=== PATIENT | female | born 2000 | race Caucasian/White ===

== ENCOUNTER 2024-06-27 08:58 | Outpatient (CLI) | payer OTHER, SELFPAY ==
[2024-06-27 16:48] LABS: Progesterone 14.5 ng/mL
== END 2024-06-27 08:59 | disposition home or self-care (01) ==
LOC: ANHLAB 09:05
PROVIDERS: Visit Provider Advanced Practice Midwife
DX: R87.69 Abnormal cytological findings in specimens from other female genital organs (principal)
CPT/HCPCS: 36415; 84144

== ENCOUNTER 2025-03-31 18:40 | Inpatient (IN) | payer OTHER, SELFPAY ==
[2025-03-31] VITALS (56 sets, daily range): BP systolic 108–143; BP diastolic 55–99; PULSE 51–91; TEMP 36.6; O2SAT 98–100; BMI 31.1
[2025-03-31 18:02] LABS: Add Urine Microscopic? YES; Appearance Urine Clear (Clear); Bacteria Urine 1+ /hpf; Bilirubin Urine Negative (Negative); Blood Urine Negative (Negative); Color Urine Yellow (Yellow); Glucose Urine UA Negative (Negative); Ketones Urine Negative (Negative); Leukocyte Esterase Ur 3+ LEU/UL (Negative); Nitrate Urine Negative (Negative); Non Pathogenic Casts 0-2; Protein Urine Negative (Negative); RBC Urine 0-2 /hpf (0-2); Specific Grav Ur 1.006 (1.001-1.035); Squamous Epithelial Cell Urine Occasional /hpf (Few); Urobilinogen Urine 0.2 mg/dL (<2.0); pH Urine 6.5 (5.0-9.0)
[2025-03-31 18:06] LABS: Basophils Percent Auto 0.3 % (0.2-1.2); Eosinophils Absolute Auto 0.1 K/mm3 (0-0.3); Eosinophils Percent Auto 0.3 % (0-4.4); Hematocrit 36.5 % (37.0-47.0); Hemoglobin 12.8 g/dL (12.0-15.0); Immature Granulocyte Absolute 0.11 K/mm3 (0.00-0.031); Immature Granulocyte Percent A 0.7 % (0-0.5); Lymphocytes Absolute Auto 2.34 K/mm3 (0.9-3.2); Lymphocytes Percent Auto 14.9 % (18.3-44.2); Mean Corpuscular HGB Conc 35.1 g/dl (32-36); Mean Corpuscular Hemoglobin 33.4 pg (26-34); Mean Corpuscular Volume 95.3 fl (80-100); Monocytes Absolute Auto 0.9 K/mm3 (0.1-0.6); Monocytes Percent Auto 5.8 % (2.6-8.5); Neutrophils Absolute Auto 12.3 K/mm3 (1.3-6.7); Platelet Count Result 182 k/mm3 (150-375); Red Blood Count 3.83 M/mm3 (4.2-5.4); White Blood Count 15.7 K/mm3 (4.5-10.0)
--- OUTSIDE RECORDS SUMMARY | 2025-03-31 18:16 | XMS_ITS | Continuity of Care Document ---
Author Organization [facility] Address [address] [place] [address] Assessment Encounter Date Assessment Date Assessment LastModified by Organization Details LastModified Time 03/31/2025 03/31/2025 Patient is 38___weeks . Discussed plan. Not available 03/31/2025 18:52:42 Plan of Treatment Reminders Order Date Submit Date Provider Last Modified By Organization Details Last Modified Time Details Appointments OB ROUTINE 2024 03:45P Zain Longo CNM Not available Not available Not available Lab None recorded . Referral None recorded . Procedures None recorded . Surgeries None recorded . Imaging None recorded . Medication Orders None recorded . Patient TargetsNo targets recorded. Patient InstructionsNo instructions recorded. Reason for Referral None Reported. Results Created Date Observation Date Name Description Value Unit Range Abnormal Flag Note LastModifiedBy Organization Detail LastModifiedTime 09/30/20 24 09/30/2024 US, obste tric, nucha l trans lucen cy No observ ation record ed. [email or web address] [address], [place], [address], 09/30/2024 16:57:25 09/30/20 24 09/30/2024 US, obste tric, nucha l trans lucen cy No observ ation record ed. [facility] [address], [place], [address], 09/30/2024 13:10:38 09/30/20 24 09/30/2024 US, obste tric, 1st trime ster No observ ation record ed. [facility] [address], [place], [address], 09/30/2024 13:10:50 09/30/20 24 09/30/2024 US, obste tric, 1st trime ster No observ ation record ed. [facility] [address], [place], [address], 09/30/2024 13:10:59 09/30/20 24 09/30/2024 US, obste tric, 1st trime ster No observ ation record ed. [facility] [address], [place], [address], 09/30/2024 13:11:10 11/25/19 25 11/25/2024 US, obste tric, 2nd or 3rd trime ster No observ ation record ed. [email or web address] [place] [address], [place], [address], 11/25/2024 13:25:26 11/25/19 25 11/25/2024 US, obste tric, trans vagin al No observ ation record ed. [email or web address] [place] [address], [place], [address], 11/25/2024 13:25:46 11/25/19 25 11/25/2024 US, obste tric, 2nd or 3rd trime ster No observ ation record ed. [email or web address] [address], [place], [address], 11/25/2024 21:31:18 02/26/20 25 02/25/2025 US, obste tric, follo w-up No observ ation record ed. [email or web address] [place] [address], [place], [address], 02/25/2025 11:21:03 02/26/20 25 02/25/2025 US, obste tric, follo w-up No observ ation record ed. SELENE [address], [place], [address], 03/02/2025 09:18:08 Result Notes None recorded. Problems Name Problem SNOMED Code Status Onset Date Resolution Date Notes Provider Name and Address Organization Details Recorded Time [id number] Active 024 Sherrill Moscoso [facility] 4 09:48:49 Problem Notes None recorded. Procedures Surgical History Date Name Laterality Status Provider Name and Address Organization Details Recorded Time Date of Last Pap Smear completed Sherrillmellisa Moscoso [facility] 06/03/2024 14:14:57 4 extraction of wisdom tooth completed Sherrillmellisa Moscoso [facility] 06/03/2024 14:21:46 Imaging Results None recorded. Procedure Notes None recorded. Medical Equipment None Reported. Allergies No known drug allergies Medications Name Sig Start Date Stop Date Status Note LastModified by Organization Details LastModified Time ondansetron 4 mg disintegrat ing tablet Place 1 tablet every 6 hours by transling ual route. 02/10 completed Not Available Not Available Not Available nitrofurant oin monohydrate /macrocryst als 100 mg capsule TAKE 1 CAPSULE BY MOUTH EVERY 12 HOURS FOR 7 DAYS DIRECTED 11/25 completed Not Available Not Available Not Available Se-Marcos 19 Chewable 09/02 completed Not Available Not Available Not Available Jublia 10 % topical solution with applicator APPLY TOPICALLY TO THE AFFECTED AREA DAILY 09/02 completed Not Available Not Available Not Available Se- 19 29 mg iron-1 mg tablet TAKE 1 TABLET BY MOUTH EVERY DAY active Not Available Not Available No t Available Vitals Date Recorded Body weight Body mass index (BMI) Body height Systolic blood pressure Diastolic blood pressure Provider Name and Address Organization Details Last Updated DateTime 03/31/2025 88914.28 926 g 31.2 kg/m2 169.55 cm 169 mm[Hg] 89 mm[Hg] Sherrill Moscoso [facility] 16:48:22 Social History Question Answer Notes LastModified by Organizat ion Details LastModified Time Tobacco Smoking Status Never Smoker Sherrill hale [facility] 06/03/2024 14:20:12 If You Are , What Was Your Level Of Alcohol Consumption Prior To ? Occasional [email or web address] Information not available 09/02/2024 How Many Years Have You Consumed Alcohol? 4 [email or web address] Information not available 06/03/2024 Are You Blind Or Do You Have Difficulty Seeing? No [email or web address] Information n ot available 06/03/2024 What Is Your Level Of Caffeine Consumption? Occasional [email or web address] Information not available 06/03/2024 How Much Tobacco Do You Chew? None [email or web address] Information not available 06/03/2024 In The 14 Days Before Symptom Onset, Have You Had Close Contact With A Laboratory-confirm ed COVID-19 While That Case Was Ill? No [email or web address] Information n ot available 06/03/2024 In The 14 Days Before Symptom Onset, Have You Had Close Contact With A Person Who Is Under Investigation For COVID-19 While That Person Was Ill? No [email or web address] Information not available 06/03/2024 Have You Been To An Area Known To Be High Risk For COVID-19? No [email or web address] Information not available 06/03/2024 Are You Deaf Or Do You Have Serious Difficulty Hearing? No [email or web address] Information not available 06/03/2024 What Type Of Diet Are You Following? REGULAR [email or web address] Information n ot available 06/03/2024 What Is The Highest Grade Or Level Of School You Have Completed Or The Highest Degree You Have Received? QM23518-8 [email or web address] Information not available 06/03/2024 Are There Any Guns Present In Your Home? No [email or web address] Information not available 06/03/2024 Have You Ever Been Counseled For Unhealthy Alcohol Use? No [email or web address] Information not available 06/03/2024 Do You Use Protection During Sex? No [email or web address] Information not available 06/03/2024 Do You Use Your Seat Belt Or Car Seat Routinely? Yes [email or web address] Information not available 06/03/2024 Do You Have Smoke And Carbon Monoxide Detectors In Your Home? Yes [email or web address] Information not available 06/03/2024 How Much Tobacco Do You Smoke? No [email or web address] Information not available 06/03/2024 Do You Use Sunscreen Routinely? Yes [email or web address] Information not available 06/03/2024 Has Tobacco Cessation Counseling Been Provided? No Information not available 06/03/2024 Have You Used IV Drugs? No [email or web address] Information not available 06/03/2024 Do You Have Difficulty Walking Or Climbing Stairs? No [email or web address] Information not available 06/03/2024 Sex: Unknown Functional Status Question Answer Note LastModified by Organizat ion Details LastModified Time Do you use any illicit or recreational drugs? No [email or web address] Information not available 06/03/2024 Do you or have you ever used any other forms of tobacco or nicotine? No [email or web address] Information not available 06/03/2024 What is your level of alcohol consumption? None [email or web address] Information not available 09/02/2024 Are you able to walk? YESWOREST [email or web address] Information not available 06/03/2024 Are you able to care for yourself? 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 No [email or web address] Information not available 06/03/2024 What is your exercise level? Occasional [email or web address] Information not available 06/03/2024 Mental Status Question Answer Note LastModified by Organization D etails LastModified Time Do you feel stressed (tense, restless, nervous, or anxious, or unable to sleep at night)? [id number] Information not available 06/03/2024 Family History Relationship Description Onset Age of this Age Resolved Age Notes LastModified by Organization Details LastModified Time Father Heart disease [email or web address] Not available 06/03 14:21:57 Father Hypertensive disorder [email or web address] Not available 06/03 14:22:06 Medical History Condition Response Allergies (Food, seasonal, environmental ) N Other N Drug/Latex Allergies/Reactions N Breast Cancer N Blood Transfusion N Lung Disease N Dermatologic Disorders N Defects or Inherited Disease N Breast Problem N Gestational Diabetes N Hematologic disorders N Anesthesia Complications N History of STI N Deep Vein Thrombosis N Polycystic ovary syndrome N Anxiety Disorder N Autoimmune disease N Arthritis N Polyps N Infertility N History of abnormal pap N Acid Reflux (GERD) N Cancer N Varicosities N Stroke N Neurologic/Epilepsy N Endometriosis N High Cholesterol N Headaches N Fibromyalgia N Kidney Disease N Heart Problems N Thyroid Problems N Kidney or Bladder Problems N GI Problems N Eating Disorder N Anemia N Art (IVF or FET) N Psychiatric Illness N Ovarian Cancer N Diabetes N Pulmonary (TB, Asthma) N Hepatitis/Liver Disease N No Past Medical History N Eczema N Urinary Tract Infection N Abuse/Domestic Violence N Asthma N Trauma/Violence N Depression/ depression N Heart Disease N Pre-Eclampsia N Hypertension N Osteoporosis N Thrombophilias N Gynecological History Statement/Question Response Date of Last Mammogram Date of LMP 07/05/2024 N STIs/STDs N Was last menstrual period normal Y Duration of Flow (days) 4 Current Control Method Sexually Active? Y Date of DEXA bone scan Age of first menstrual cycle 11 Date of Last Pap Smear 01/30/2024 Sexual Problems? N LMP Definite N Obstetrics History GPAL:G 1 P 0 0 0 0 Type Value Living 0 Total 1 Past Encounters Encounter ID Performer Location Encounter Start Date Encounter Closed Date Diagnosis/Indication Diagnosis SNOMED-CT Code Diagnosis ICD10 Code Diagnosis [facility] [id number] [facility] [address] [place] [address] 03/12/2025 11:42:38 03/12/2025 12:35:50 Gestation period, 35 weeks [id number] Z3A.35 [id number] [facility] [address] [place] [address] 03/17/2025 15:19:37 03/18/2025 08:47:32 Gestation period, 36 weeks [id number] Z3A.36 [id number] [facility] [address] [place] [address] 03/26/2025 15:53:36 03/26/2025 16:20:24 Gestation period, 37 weeks 79271089 Z3A.37 - induced hypertension 63035852 O13.9 [id number] [facility]isc[facility] [address] [address] 03/31/2025 16:37:39 03/31/2025 19:03:38 Health Concerns Section Related Observation LastModified by Organization Detai ls LastModified Time None Recorded Concern Status LastModified by Organization Details LastModified Time None Recorded Payers Encounter Date Sequence Insurance Name Policy Number Policy Chavez Covered Member ID Chavez Member ID Guarantor Name 03/31/[address] [facility] [id number] Jaycee Faria [id number] Jaycee Faria OBGyn Episode Ob Episode Information Episode Created Date Number of Fetuses Patient Bloodtype Patient rh Status Prepregnancy Weight lbs Domestic Partner Domestic Partner Phone Father Name Pharmaceutical Officer Status 09/30/20 24 1 A Positive [address] OPEN Fetus Data First Name Last Name Admitted to NICU Weight (g) Sex Living Outcome Pediatric Complications Fetus ID Race Codes Race Delivery Type [id number] Alejo Calculation Initial Alejo Date Initial Exam Date Initial Exam Provider Initial Ultrasound Date Last Menstrual Period Date Ultra Sound Weeks Gestation 04/11/2025 09/02/2024 09/02/2024 07/05/2024 8 Eighteen To Twenty Week Alejo Update Ultra Sound Date Fundal Height At Umbil Quickening Date Ultra Sound Latest Weeks Gestation Final Aleoj Confirmed By Final Alejo Confirmed Date Final Alejo Date Ultra Sound Latest Days Gestation 0 0 Pre- Flowsheet Flowsheet Date 09/30/2024 Hines Score Blood Edema Fundus Height Fundus Units Glucose Ketones Leukocytes Nitrite Labor Signs Protein Cervic Dilation Cervic Effacement Cervic Station neg none none trace Type Weight in lbs Pre/Post Dialysis Refused Weight 157.613773966712 BP Diastolic BP Location Tested BP Systolic BP Type 80 115 Fetus Heart Rate Present Fetus Movement A No Comments Patient states that is havin g some nausea and vomiting. US after visit, reviewed education and precautions, zofran rx to pharmacy, begin routine care Flowsheet Date 09/30/2024 Hines Score Blood Edema Fundus Height Fundus Units Glucose Ketones Leukocytes Nitrite Labor Signs Protein Cervic Dilation Cervic Effacement Cervic Station Type Weight in lbs Pre/Post Dialysis Refused BP Diastolic BP Location Tested BP Systolic BP Type Fetus Heart Rate Present Fetus Movement Comments Flowsheet Date 09/30/2024 Hines Score Blood Edema Fundus Height Fundus Units Glucose Ketones Leukocytes Nitrite Labor Signs Protein Cervic Dilation Cervic Effacement Cervic Station Type Weight in lbs Pre/Post Dialysis Refused BP Diastolic BP Location Tested BP Systolic BP Type Fetus Heart Rate Present Fetus Movement Comments Flowsheet Date 10/28/2024 Hines Score Blood Edema Fundus Height Fundus Units Glucose Ketones Leukocytes Nitrite Labor Signs Protein Cervic Dilation Cervic Effacement Cervic Station none Type Weight in lbs Pre/Post Dialysis Refused 160.968132138532 BP Diastolic BP Location Tested BP Systolic BP Type 78 118 Fetus Heart Rate Present Fetus Movement A No Comments Patient states that is havin g some pain and discharge. reviewed precautions education, no FM yet, US scheduled. does not plan on . discussed classes Flowsheet Date 11/25/2024 Hines Score Blood Edema Fundus Height Fundus Units Glucose Ketones Leukocytes Nitrite Labor Signs Protein Cervic Dilation Cervic Effacement Cervic Station Type Weight in lbs Pre/Post Dialysis Refused BP Diastolic BP Location Tested BP Systolic BP Type Fetus Heart Rate Present Fetus Movement Comments Flowsheet Date 11/25/2024 Hines Score Blood Edema Fundus Height Fundus Units Glucose Ketones Leukocytes Nitrite Labor Signs Protein Cervic Dilation Cervic Effacement Cervic Station neg none none trace Type Weight in lbs Pre/Post Dialysis Refused 164.10311724587 BP Diastolic BP Location Tested BP Systolic BP Type 80 130 Fetus Heart Rate Present Fetus Movement A Yes Comments Patient is having back pain urine frequncy and discharge. 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 f/u 4 weeks Flowsheet Date 12/25/2024 Hines Score Blood Edema Fundus Height Fundus Units Glucose Ketones Leukocytes Nitrite Labor Signs Protein Cervic Dilation Cervic Effacement Cervic Station 24 cm Type Weight in lbs Pre/Post Dialysis Refused Weight 174.677002259883 BP Diastolic BP Location Tested BP Systolic BP Type 78 L arm 118 sitting Fetus Heart Rate Present A 148 Present Fetus Movement A Yes Comments no complaints, no problems, routine care, no contractions, no vaginal bleeding, no loss of fluid, no cramping Flowsheet Date 01/20/2025 Hines Score Blood Edema Fundus Height Fundus Units Glucose Ketones Leukocytes Nitrite Labor Signs Protein Cervic Dilation Cervic Effacement Cervic Station neg none 28 cm Type Weight in lbs Pre/Post Dialysis Refused Weight 181.962771452811 BP Diastolic BP Location Tested BP Systolic BP Type 83 131 Fetus Heart Rate Present A 147 Present Fetus Movement A Yes Comments Patient is having back and l eg pain. will measure for maternity support belt. will try flexeril, +FM rx for tdap, precautions and education, gct today Flowsheet Date 02/10/2025 Hines Score Blood Edema Fundus Height Fundus Units Glucose Ketones Leukocytes Nitrite Labor Signs Protein Cervic Dilation Cervic Effacement Cervic Station neg none Type Weight in lbs Pre/Post Dialysis Refused Weight 187.027997474983 BP Diastolic BP Location Tested BP Systolic BP Type 84 129 Fetus Heart Rate Present Fetus Movement A Yes Comments +FM , planning tdap, order b reast pump, precautions and education f/u 2 weeks, call for preadmit Flowsheet Date 02/25/2025 Hines Score Blood Edema Fundus Height Fundus Units Glucose Ketones Leukocytes Nitrite Labor Signs Protein Cervic Dilation Cervic Effacement Cervic Station neg none Type Weight in lbs Pre/Post Dialysis Refused Weight 188.748034400941 BP Diastolic BP Location Tested BP Systolic BP Type 87 140 72 122 Fetus Heart Rate Present Fetus Movement A Yes Comments Patient is having nausea. re viewed precautions, education, +FM US today for growth f/u 2 weeks, call for preadmit Flowsheet Date 02/25/2025 Hines Score Blood Edema Fundus Height Fundus Units Glucose Ketones Leukocytes Nitrite Labor Signs Protein Cervic Dilation Cervic Effacement Cervic Station Type Weight in lbs Pre/Post Dialysis Refused BP Diastolic BP Location Tested BP Systolic BP Type Fetus Heart Rate Present Fetus Movement Comments Flowsheet Date 03/12/2025 Hines Score Blood Edema Fundus Height Fundus Units Glucose Ketones Leukocytes Nitrite Labor Signs Protein Cervic Dilation Cervic Effacement Cervic Station neg trace 34 cm Type Weight in lbs Pre/Post Dialysis Refused Weight 192.283738728494 BP Diastolic BP Location Tested BP Systolic BP Type 80 125 Fetus Heart Rate Present A 150 Fetus Movement A Yes Comments Patient is having some swell ing. reviewed precautions education gbs collected +FM Flowsheet Date 03/17/2025 Hines Score Blood Edema Fundus Height Fundus Units Glucose Ketones Leukocytes Nitrite Labor Signs Protein Cervic Dilation Cervic Effacement Cervic Station neg none 36 cm Type Weight in lbs Pre/Post Dialysis Refused Weight 195.014327412835 BP Diastolic BP Location Tested BP Systolic BP Type 88 129 Fetus Heart Rate Present A 147 Present Fetus Movement A Yes Comments Patient states that is havin g some swelling. reviewed precautions, scheduled 39 week IOl, +FM precautions and education Flowsheet Date 03/26/2025 Hines Score Blood Edema Fundus Height Fundus Units Glucose Ketones Leukocytes Nitrite Labor Signs Protein Cervic Dilation Cervic Effacement Cervic Station neg trace Type Weight in lbs Pre/Post Dialysis Refused Weight 197.711899456910 BP Diastolic BP Location Tested BP Systolic BP Type 90 136 82 128 Fetus Heart Rate Present Fetus Movement Comments Patient is having cramping a nd swelling. denies martin visual changes epigastric pain, plan labs has f/u on saturday +FM, preadmit done, precautions and education Flowsheet Date 03/31/2025 Hines Score Blood Edema Fundus Height Fundus Units Glucose Ketones Leukocytes Nitrite Labor Signs Protein Cervic Dilation Cervic Effacement Cervic Station neg trace Type Weight in lbs Pre/Post Dialysis Refused 198.801132669976 BP Diastolic BP Location Tested BP Systolic BP Type 89 169 Fetus Heart Rate Present Fetus Movement A Yes Comments Patient is having back pain, cramping, swelling and nausea. Patient was sent to labor and delivery for her blood pressure. Menstrual History Last Menstrual Date Menses Monthly On Bcp Conception Prior Menses Frequency Hcg Plus Date Menarche Onset Age 0907/05/2024 true Delivery Information Delivery Date Delivery Type Labor Anesthesia Weeks Gestation Incision Type Labor Labor Length Hrs Delivered By Post Complications Tubal Sterilization Discharge Date Comments Discharge Information Feeding Method Contraceptive Method Maternal HG B and HCT Levels
--- OUTSIDE RECORDS SUMMARY | 2025-03-31 18:16 | XMS_ITS | Data Portability ---
Author Organization [facility] Address [address] [place] [address] Assessment Encounter Date Assessment Date Assessment LastModified by Organization Details LastModified Time 02/25/2025 02/25/2025 Patient is _33__weeks . Discussed plan. Not available 02/25/2025 09:28:13 03/12/2025 03/12/2025 Patient is _35__weeks . Discussed plan. [email or web address] Not available 03/12/2025 12:25:10 03/17/2025 03/17/2025 Patient is __36_weeks . Discussed plan. Not available 03/17/2025 19:44:57 03/26/2025 03/26/2025 Patient is ___weeks . Discussed plan. [email or web address] Not available 03/26/2025 16:05:03 03/31/2025 03/31/2025 Patient is 38___weeks . Discussed plan. [email or web address] Not available 03/31/2025 18:52:42 Plan of Treatment Reminders Order Date Submit Date Provider Last Modified By Organization Details Last Modified Time Details Appointments OB ROUTINE 2024 03:45P M Francisca Longo CNM Not available Not available Not available Lab CBC w/ auto diff 2024 025 [facility] (Lab), [address], [place], [address], 03/27/2025 04:49:37 CMP, serum or plasma 2024 025 [facility] (Lab), [address], [place], [address], 03/27/2025 04:49:38 uric acid, serum or plasma 2024 025 [facility] (Lab), [address], [place], [address], 03/27/2025 04:49:38 protein: creatini ne ratio, urine 2024 025 [facility] (Lab), [address], [place], [address], 03/27/2025 04:49:39 Referral None recorded . Procedures None recorded . Surgeries None recorded . Imaging None recorded . Medication Orders None recorded . Patient TargetsNo targets recorded. Patient InstructionsNo instructions recorded. Reason for Referral None Reported. Results Created Date Observation Date Name Description Value Unit Range Abnormal Flag Note LastModifiedBy Organization Detail LastModifiedTime 03/12/2003/12/2025 CULTU RE: GROUP B STREP SCREE N, REFLE X SUSCE PTIBI LITY result report SEE RESULT S BELOW Test: Cultu re: Group B Strep , Refle x Susce ptibi lity ([facility] ) Speci men Sourc e: Vagin a/Rec roz Speci men Type: Vagin al/Re ctal Speci men Date: 2024 1144 Resul t Date: 2024 1408 Resul t Statu s: Final resul t Abnor mal: No Resul ting Lab: [facility] [address] [facility] [address] Tel: CULTU RE ----- ----- ----- --- No Group B strep isola haja at 2 days (viola ctive broth enhan cemen t) Not Available [facility] (Lab) [address], [place], [address], 03/15/2025 15:10:46 03/26/20 25 03/26/2025 CBC W/DIF F WBC 12.1 10'3/ uL 3.5-10 .5 high Not Available [facility] (Lab) [address], [place], [address], 03/27/2025 04:49:37 03/26/20 25 03/26/2025 CBC W/DIF F RBC 4.08 10'6/ uL (based on docume nted legal sex) 3.80-5 .20 Not Available [facility] (Lab) [address], [place], [address], 03/27/2025 04:49:37 03/26/20 25 03/26/2025 CBC W/DIF F HGB 13.6 g/dL (based on docume nted legal sex) 11.6-1 5.4 Not Available [facility] (Lab) [address], [place], [address], 03/27/2025 04:49:37 03/26/20 25 03/26/2025 CBC W/DIF F HCT 38.9 % (based on docume nted legal sex) 34.0-4 5.0 Not Available [facility] (Lab) [address], [place], [address], 03/27/2025 04:49:37 03/26/20 25 03/26/2025 CBC W/DIF F MCV 95.3 fL 80.0-9 9.0 Not Available [facility] (Lab) [address] [place], [address], 03/27/2025 04:49:37 03/26/20 25 03/26/2025 CBC W/DIF F MCH 33.3 pg 27.0-3 4.0 Not Available [facility] (Lab) [address], [place], [address], 03/27/2025 04:49:37 03/26/20 25 03/26/2025 CBC W/DIF F MCHC 35.0 g/dL 32.0-3 5.5 Not Available [facility] (Lab) [address], [place], [address], 03/27/2025 04:49:37 03/26/20 25 03/26/2025 CBC W/DIF F RDW 12.1 % 11.0-1 5.0 Not Available [facility] (Lab) [address], [place], [address], 03/27/2025 04:49:37 03/26/20 25 03/26/2025 CBC W/DIF F plt 207 10'3/ uL 150-40 0 Not Available [facility] (Lab) [address], [place], [address], 03/27/2025 04:49:37 03/26/20 25 03/26/2025 CBC W/DIF F MPV 11.5 fL 8.8-12 .1 Not Available [facility] (Lab) [address], [place], [address], 03/27/2025 04:49:37 03/26/20 25 03/26/2025 CBC W/DIF F NRBC's 0.0 % 0.0 Not Available [facility] (Lab) [address], [place], [address], 03/27/2025 04:49:37 03/26/20 25 03/26/2025 CBC W/DIF F absolute NRBCs 0.0 10'3/ uL no refere nce range establ ished Not Available [facility] (Lab) [address], [place], [address], 03/27/2025 04:49:37 03/26/20 25 03/26/2025 CBC W/DIF F neutrophils 76.2 % 34.0-7 3.0 high Not Available [facility] (Lab) [address], [place], [address], 03/27/2025 04:49:37 03/26/20 25 03/26/2025 CBC W/DIF F lymphocytes 16.5 % 15.0-5 0.0 Not Available [facility] (Lab) [address], [place], [address], 03/27/2025 04:49:37 03/26/20 25 03/26/2025 CBC W/DIF F monocytes 5.7 % 1.0-15 .0 Not Available [facility] (Lab) [address], [place], [address], 03/27/2025 04:49:37 03/26/20 25 03/26/2025 CBC W/DIF F eosinophils 0.7 % 0.0-8. 0 Not Available [facility] (Lab) [address], [place], [address], 03/27/2025 04:49:37 03/26/20 25 03/26/2025 CBC W/DIF F basophils 0.2 % 0.0-2. 0 Not Available [facility] (Lab) [address], [place], [address], 03/27/2025 04:49:37 03/26/20 25 03/26/2025 CBC W/DIF F immature granulocytes 0.7 % no define d refere nce range Immat ure Granu locyt es (IG) repre sents autom ated enume ratio n of Metam yeloc ytes, Myelo cytes and Promy elocy summer when IG is < 5%. Blast s are not inclu ded in IG and repor haja separ ately if prese nt. Not Available [facility] (Lab) [address], [place], [address], 03/27/2025 04:49:37 03/26/2003/26/2025 CBC W/DIF F absolute neutrophils 9.2 10'3/ uL 1.5-8. 0 high Not Available [facility] (Lab) [address], [place], [address], 03/27/2025 04:49:37 03/26/20 03/26/2025 CBC W/DIF F absolute lymphocytes 2.0 10'3/ uL 1.0-4. 0 Not Available [facility] (Lab) [address], [place], [address], 03/27/2025 04:49:37 03/26/2003/26/2025 CBC W/DIF F absolute monocytes 0.7 10'3/ uL 0.2-1. 0 Not Available [facility] (Lab) [address], [place], [address], 03/27/2025 04:49:37 03/26/2003/26/2025 CBC W/DIF F absolute eosinophils 0.1 10'3/ uL 0.0-0. 6 Not Available [facility] (Lab) [address], [place], [address], 03/27/2025 04:49:37 03/26/2003/26/2025 CBC W/DIF F absolute basophils 0.0 10'3/ uL 0.0-0. 3 Not Available [facility] (Lab) [address], [place], [address], 03/27/2025 04:49:37 03/26/2003/26/2025 CBC W/DIF F absolute immature granulocytes 0.1 10'3/ uL 0.00-0 .10 Refer ence range s for nonbi nary/ inter sex or unspe cifie d gende r patie nts have not been estab lishe d. [facility]as e [facility] for range s estab lishe d for cisge nder patie nts and evalu ate in the clini ik kaye xt of the indiv idual patie nt: https ://caterina sheets book. nm.or g/gen derx Not Available [facility] (Lab) [address], [place], [address], 03/27/2025 04:49:37 03/26/2003/26/2025 URIC ACID uric acid 7.4 mg/dL 2.3-6. 6 high Not Available [facility] (Lab) [address], [place], [address], 03/27/2025 04:49:38 03/26/20 25 03/26/2025 CMP(C OMPRE HENSI VE METAB OLIC PANEL ) sodium 138 mmol/ L 133-14 6 Not Available [facility] (Lab) [address], [place], [address], 03/27/2025 04:49:38 03/26/20 25 03/26/2025 CMP(C OMPRE HENSI VE METAB OLIC PANEL ) potassium 4.0 mmol/ L 3.5-5. 1 Not Available [facility] (Lab) [address], [place], [address], 03/27/2025 04:49:38 03/26/20 25 03/26/2025 CMP(C OMPRE HENSI VE METAB OLIC PANEL ) chloride 104 mmol/ L 98-107 Not Available [facility] (Lab) [address], [place], [address], 03/27/2025 04:49:38 03/26/20 25 03/26/2025 CMP(C OMPRE HENSI VE METAB OLIC PANEL ) carbon dioxide 23 mmol/ L 21-31 Not Available [facility] (Lab) [address], [place], [address], 03/27/2025 04:49:38 03/26/20 25 03/26/2025 CMP(C OMPRE HENSI VE METAB OLIC PANEL ) anion gap 11 mmol/ L 4-13 Not Available [facility] (Lab) [address] [place], [address], 03/27/2025 04:49:38 03/26/20 25 03/26/2025 CMP(C OMPRE HENSI VE METAB OLIC PANEL ) blood urea nitrogen 13 mg/dL 7-25 Not Available [facility] (Lab) [address] [place], [address], 03/27/2025 04:49:38 03/26/20 25 03/26/2025 CMP(C OMPRE HENSI VE METAB OLIC PANEL ) creatinine 0.73 mg/dL 0.60-1 .30 Not Available [facility] (Lab) [address], [place], [address], 03/27/2025 04:49:38 03/26/20 25 03/26/2025 CMP(C OMPRE HENSI VE METAB OLIC PANEL ) egfrcr (CKD-epi 2020) >90 mL/mi n/1.7 3_m2 >=60 Not Available [facility] (Lab) [address], [place], [address], 03/27/2025 04:49:38 03/26/20 25 03/26/2025 CMP(C OMPRE HENSI VE METAB OLIC PANEL ) calcium 9.2 mg/dL 8.3-10 .5 Not Available [facility] (Lab) [address], [place], [address], 03/27/2025 04:49:38 03/26/20 25 03/26/2025 CMP(C OMPRE HENSI VE METAB OLIC PANEL ) glucose 88 mg/dL 70-100 Not Available [facility] (Lab) [address], [place], [address], 03/27/2025 04:49:38 03/26/20 25 03/26/2025 CMP(C OMPRE HENSI VE METAB OLIC PANEL ) protein, total 6.4 g/dL 6.4-8. 3 Not Available [facility] (Lab) [address] [place], [address], 03/27/2025 04:49:38 03/26/20 25 03/26/2025 CMP(C OMPRE HENSI VE METAB OLIC PANEL ) albumin 3.7 g/dL 3.5-5. 0 Not Available [facility] (Lab) [address], [place], [address], 03/27/2025 04:49:38 03/26/20 25 03/26/2025 CMP(C OMPRE HENSI VE METAB OLIC PANEL ) ALT 14 units /L 9-43 Not Available [facility] (Lab) [address], [place], [address], 03/27/2025 04:49:38 03/26/20 25 03/26/2025 CMP(C OMPRE HENSI VE METAB OLIC PANEL ) alkaline phosphatase 152 units /L 34-104 high Not Available [facility] (Lab) [address], [place], [address], 03/27/2025 04:49:38 03/26/20 25 03/26/2025 CMP(C OMPRE HENSI VE METAB OLIC PANEL ) AST 22 units /L 13-39 Not Available [facility] (Lab) [address], [place], [address], 03/27/2025 04:49:38 03/26/20 25 03/26/2025 CMP(C OMPRE HENSI VE METAB OLIC PANEL ) bilirubin, total 0.3 mg/dL 0.2-1. 2 Not Available [facility] (Lab) [address], [place], [address], 03/27/2025 04:49:38 03/26/20 25 03/26/2025 PROTE IN/CR EATIN INE RATIO , URINE creatinine, urine 92.0 mg/dL R-No refer ence range estab lishe d for this assay Not Available [facility] (Lab) [address], [place], [address], 03/27/2025 04:49:39 03/26/20 25 03/26/2025 PROTE IN/CR EATIN INE RATIO , URINE protein, urine 9 mg/dL R-No refer ence range estab lishe d for this assay Not Available [facility] (Lab) [address], [place], [address], 03/27/2025 04:49:39 03/26/20 25 03/26/2025 PROTE IN/CR EATIN INE RATIO , URINE protein/crea tinine ratio, urine 0.10 . No Refer ence Range avail able for Harmonyo m Urine s. A prote in to creat inine ratio of >=0.1 9 is a good predi ctor of signi fican t prote inuri a. A level of <0.14 can rule out signi fican t prote inuri a. Not Available [facility] (Lab) [address], [place], [address], 03/27/2025 04:49:39 02/26/20 25 02/25/2025 US, obste tric, follo w-up No observ ation record ed. [email or web address] [place] [address], [place], [address], 02/25/2025 11:21:03 02/26/20 25 02/25/2025 US, obste tric, follo w-up No observ ation record ed. SELENE Orellana [address], [place], [address], 03/02/2025 09:18:08 Result Notes None recorded. Problems Name Problem SNOMED Code Status Onset Date Resolution Date Notes Provider Name and Address Organization Details Recorded Time [id number] Active 024 Sherrill Moscoso [facility] 4 09:48:49 Problem Notes None recorded. Procedures Surgical History Date Name Laterality Status Provider Name and Address Organization Details Recorded Time 4 Date of Last Pap Smear completed Sherrill Moscoso [facility] 06/03/2024 14:14:57 4 extraction of wisdom tooth completed Sherrill Moscoso [facility] 06/03/2024 14:21:46 Imaging Results None recorded. [...] Available Not Available Not Available Se-Marcos 19 29 mg iron-1 mg tablet TAKE 1 TABLET BY MOUTH EVERY DAY active Not Available Not Available No t Available Vitals Date Recorded Systolic blood pressure Diastolic blood pressure Provider Name and Address Organization Details Last Updated DateTime 02/25/2025 122 mm[Hg] 72 mm[Hg] Francisca Longo CNM [address], [place], [address], [facility] 02/25/2025 09:41:53 Date Recorded Body height Body mass index (BMI) Body weight Systolic blood pressure Diastolic blood pressure Provider Name and Address Organization Details Last Updated DateTime 02/25/2025 169.55 cm 29.7 kg/m2 71884.37 g 140 mm[Hg] 87 mm[Hg] Sherrill Moscoso [facility] 09:24:46 Date Recorded Body height Body mass index (BMI) Body weight Systolic blood pressure Diastolic blood pressure Provider Name and Address Organization Details Last Updated DateTime 03/12/2025 169.55 cm 30.3 kg/m2 30816.74 g 125 mm[Hg] 80 mm[Hg] Sherrill Moscoso [facility] 12:11:56 Date Recorded Body height Body mass index (BMI) Body weight Systolic blood pressure Diastolic blood pressure Provider Name and Address Organization Details Last Updated DateTime 03/17/2025 169.55 cm 30.8 kg/m2 48600.51 g 129 mm[Hg] 88 mm[Hg] Sherrill Moscoso [facility] 15:56:53 Date Recorded Systolic blood pressure Diastolic blood pressure Provider Name and Address Organization Details Last Updated DateTime 03/26/2025 128 mm[Hg] 82 mm[Hg] Francisca Longo CNM [address], [place], [address], [facility] 03/26/2025 16:17:47 Date Recorded Body height Body mass index (BMI) Body weight Systolic blood pressure Diastolic blood pressure Provider Name and Address Organization Details Last Updated DateTime 03/26/2025 169.55 cm 31.1 kg/m2 64455.7 g 136 mm[Hg] 90 mm[Hg] Sherrill Moscoso [facility] 16:05:33 Date Recorded Body weight Body mass index (BMI) Body height Systolic blood pressure Diastolic blood pressure Provider Name and Address Organization Details Last Updated DateTime 03/31/2025 70631.28 926 g 31.2 kg/m2 169.55 cm 169 mm[Hg] 89 mm[Hg] Sherrill Moscoso [facility] 16:48:22 Social History Question Answer Notes LastModified by Organizat ion Details LastModified Time Tobacco Smoking Status Never Smoker Sherrill Moscoso [facility], [facility] 06/03/2024 14:20:12 If You Are , What Was Your Level Of Alcohol Consumption Prior To ? Occasional [email or web address] Information not available 09/02/2024 How Many Years Have You Consumed Alcohol? 4 [email or web address] Information not available 06/03/2024 Are You Blind Or Do You Have Difficulty Seeing? No [email or web address] Information n ot available 06/03/2024 What Is Your Level Of Caffeine Consumption? Occasional [email or web address] Information not available 06/03/2024 How Much Tobacco Do You Chew? None [email or web address] Information not available 06/03/2024 In The 14 Days Before Symptom Onset, Have You Had Close Contact With A Laboratory-confirm ed COVID-19 While That Case Was Ill? No [email or web address] Information n ot available 06/03/2024 In The 14 Days Before Symptom Onset, Have You Had Close Contact With A Person Who Is Under Investigation For COVID-19 While That Person Was Ill? No [email or web address] Information not available 06/03/2024 Have You Been To An Area Known To Be High Risk For COVID-19? No [email or web address] Information not available 06/03/2024 Are You Deaf Or Do You Have Serious Difficulty Hearing? No [email or web address] Information not available 06/03/2024 What Type Of Diet Are You Following? REGULAR [email or web address] Information n ot available 06/03/2024 What Is The Highest Grade Or Level Of School You Have Completed Or The Highest Degree You Have Received? [id number] [email or web address] Information not available 06/03/2024 Are There Any Guns Present In Your Home? No [email or web address] Information not available 06/03/2024 Have You Ever Been Counseled For Unhealthy Alcohol Use? No [email or web address] Information not available 06/03/2024 Do You Use Protection During Sex? No [email or web address] Information not available 06/03/2024 Do You Use Your Seat Belt Or Car Seat Routinely? Yes [email or web address] Information not available 06/03/2024 Do You Have Smoke And Carbon Monoxide Detectors In Your Home? Yes Information not available 06/03/2024 How Much Tobacco Do You Smoke? No [email or web address] Information not available 06/03/2024 Do You Use Sunscreen Routinely? Yes [email or web address] Information not available 06/03/2024 Has Tobacco Cessation Counseling Been Provided? No [email or web address] Information not available 06/03/2024 Have You Used IV Drugs? No [email or web address] Information not available 06/03/2024 Do You Have Difficulty Walking Or Climbing Stairs? No [email or web address] Information not available 06/03/2024 Sex: Unknown Functional Status Question Answer Note LastModified by Organizat ion Details LastModified Time Do you use any illicit or recreational drugs? No [email or web address] Information not available 06/03/2024 Do you or have you ever used any other forms of tobacco or nicotine? No [email or web address] Information not available 06/03/2024 What is your level of alcohol consumption? None [email or web address] Information not available 09/02/2024 Are you able to walk? YESWOREST [email or web address] Information not available 06/03/2024 Are you able to care for yourself? 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 No [email or web address] Information not available 06/03/2024 What is your exercise level? Occasional [email or web address] Information not available 06/03/2024 Mental Status Question Answer Note LastModified by Organization D etails LastModified Time Do you feel stressed (tense, restless, nervous, or anxious, or unable to sleep at night)? [id number] [email or web address] Information not available 06/03/2024 Family History Relationship Description Onset Age of this Age Resolved Age Notes LastModified by Organization Details LastModified Time Father Heart disease [email or web address] Not available 06/03 14:21:57 Father Hypertensive disorder [email or web address] Not available 06/03 14:22:06 Medical History Condition Response Other N Blood Transfusion N Dermatologic Disorders N Gestational Diabetes N Anxiety Disorder N Autoimmune disease N Arthritis N Polyps N Infertility N Acid Reflux (GERD) N Cancer N Varicosities N Stroke N Neurologic/Epilepsy N Fibromyalgia N Headaches N Kidney Disease N Heart Problems N Kidney or Bladder Problems N Eating Disorder N Art (IVF or FET) N Hepatitis/Liver Disease N No Past Medical History N Urinary Tract Infection N Asthma N Trauma/Violence N Thrombophilias N Allergies (Food, seasonal, environmental ) N Breast Cancer N Drug/Latex Allergies/Reactions N Lung Disease N Defects or Inherited Disease N Breast Problem N Hematologic disorders N Anesthesia Complications N History of STI N Deep Vein Thrombosis N Polycystic ovary syndrome N History of abnormal pap N Endometriosis N High Cholesterol N Thyroid Problems N GI Problems N Anemia N Psychiatric Illness N Ovarian Cancer N Diabetes N Pulmonary (TB, Asthma) N Eczema N Abuse/Domestic Violence N Depression/ depression N Heart Disease N Pre-Eclampsia N Hypertension N Osteoporosis N Gynecological History Statement/Question Response Date of [...] SNOMED-CT Code Diagnosis ICD10 Code Diagnosis Note [id number] Francisca Longo CNM [facility] [address],[place] [address] 06/03/2024 13:38:49 06/03/2024 14:38:40 Trying to conceive 153764348 Z31.9 reviewedCO STcontinue vitaminsem en analysis orders and handouts givenhando uts on IUI/medica tion givenplan to check labs today and progestero ne next month, pt to call with +LHcheck benefits, consider HSG [id number] Bernardo Colon MD [facility] [address],[place] [address] 09/02/2024 16:45:19 09/02/2024 17:20:03 [id number] [facility] [address],[place] [address] 09/02/2024 16:45:36 09/03/2024 09:18:51 Venereal disease screening 768679438 Z11.3 Amenorrhea 18721046 N91. 2 [facility] up to datereview ed usplan NIPT and labs at 10-12 weeksnew ob and first look at 12 weeks [id number] Francisca Longo CNM [facility] [address],[place] [address] 09/30/2024 09:23:28 09/30/2024 10:14:27 Gestation period, 12 weeks 29413250 Z3A.12 Routine an tenatal care 562125004 Z34.90 Nausea and vomiting 1693 1999 R11.2 [id number] Bernardo Colon MD [facility] [address],[place] [address] 09/30/2024 10:20:59 09/30/2024 11:32:19 screening 159036117 Z36.82 Z3A.12 [id number] Bernardo Colon MD [facility] [address],[place] [address] 09/30/2024 10:27:27 09/30/2024 11:38:02 screening 178598860 Z36.82 Z3A.12 [id number] [facility] [address],[place] [address] 10/28/2024 09:26:09 10/28/2024 09:53:24 Gestation period, 16 weeks 21502332 Z3A.16 [id number] Bernardo Colon MD [facility] [address],[place] [address] 11/25/2024 09:20:23 11/25/2024 10:41:24 screening for malformation 643995174 Z36.3 Z3A.20 [id number] Francisca Longo [facility] [address],[place] [address] 11/25/2024 09:21:33 11/25/2024 11:34:24 Urinary symptoms 617028827 R39.9 Gestation period, 20 weeks 00409557 Z3A.20 [id number] Bernardo Colon MD [facility] [address],[place] [address] 12/25/2024 14:29:23 12/25/2024 15:06:33 Routine care 184703401 Z34.90 [id number] Francisca Longo [facility] [address],[place] [address] 01/20/2025 09:17:35 01/20/2025 09:53:10 Gestation period, 28 weeks 44716031 Z3A.28 [id number] [facility] [address],[place] [address] 02/10/2025 09:43:41 02/10/2025 12:41:54 Gestation period, 31 weeks 35201666 Z3A.31 [id number] Francisca Longo [facility] [address],[place] [address] 02/25/2025 09:19:18 02/25/2025 09:42:15 Gestation period, 33 weeks 34312566 Z3A.33 [id number] Bernardo Colon MD [facility] [address],[place] [address] 02/25/2025 09:36:27 02/25/2025 10:30:22 Uterine size for dates discrepancy 702415797 O26.843 Z3A.33 [id number] Francisca Longo [facility] [address],[place] [address] 03/12/2025 11:42:38 03/12/2025 12:35:50 Gestation period, 35 weeks 87312729 Z3A.35 [id number] [facility] [address],[place] [address] 03/17/2025 15:19:37 03/18/2025 08:47:32 Gestation period, 36 weeks 32246697 Z3A.36 [id number] [facility] [address] [address] 03/26/2025 15:53:36 03/26/2025 16:20:24 Gestation period, 37 weeks 42394899 Z3A.37 - induced hypertension 93197360 O13.9 [id number] Francisca Longo [place] [address],[place] [address] 03/31/2025 16:37:39 03/31/2025 19:03:38 Health Concerns Section Related Observation LastModified by Organization Detai ls LastModified Time None Recorded Concern Status LastModified by Organization Details LastModified Time None Recorded Advance Directives Directive None Recorded Payers Encounter Date Sequence Insurance Name Policy Number Policy Chavez Covered Member ID Chavez Member ID Guarantor Name 02/25/2025 1 [facility] [id number] Jaycee Faria [id number] Jaycee Faria 03/12/2025 1 [facility] [id number] Jaycee Sepulvedawitt [id number] Jaycee Sepulvedawitt 03/17/2025 1 [facility] [id number] Jaycee Sepulvedawitt [id number] Jaycee Sepulvedawitt 03/26/2025 1 [facility] [id number] Jaycee Sepulvedawitt [id number] Jaycee Sepulvedawitt 03/31/2025 1 [facility] [id number] Jaycee Sepulvedawitt [id number] Jaycee Bienvenido OBGyn Episode Ob Episode Information Episode Created Date Number of Fetuses Patient Bloodtype Patient rh Status Prepregnancy Weight lbs Domestic Partner Domestic Partner Phone Father Name 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 Instructor Status 09/30/20 24 1 A Positive [address] OPEN Fetus Data First Name Last Name Admitted to NICU Weight (g) Sex Living Outcome Pediatric Complications Fetus ID Race Codes Race Delivery Type [id number] Alejo Calculation Initial Alejo Date Initial Exam Date Initial Exam Provider Initial Ultrasound Date Last Menstrual Period Date Ultra Sound Weeks Gestation 04/11/2025 09/02/2024 09/02/2024 07/05/2024 8 Eighteen To Twenty Week Alejo Update Ultra Sound Date Fundal Height At Umbil Quickening Date Ultra Sound Latest Weeks Gestation Final Alejo Confirmed By Final Alejo Confirmed Date Final Alejo Date Ultra Sound Latest Days Gestation 0 0 Pre- Flowsheet Flowsheet Date 09/30/2024 Hines Score Blood Edema Fundus Height Fundus Units Glucose Ketones Leukocytes Nitrite Labor Signs Protein Cervic Dilation Cervic Effacement Cervic Station neg none none trace Type Weight in lbs Pre/Post Dialysis Refused Weight 157.821241257197 BP Diastolic BP Location Tested BP Systolic [...] Type Weight in lbs Pre/Post Dialysis Refused 160.717354939781 BP Diastolic BP Location Tested BP Systolic [...] Type Weight in lbs Pre/Post Dialysis Refused 164.26173661431 BP Diastolic BP Location Tested BP Systolic BP Type 80 130 Fetus Heart Rate Present Fetus Movement A Yes Comments Patient is having back pain urine frequncy and discharge. 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 weeks Flowsheet Date 12/25/2024 Hines Score Blood Edema Fundus Height Fundus Units Glucose Ketones Leukocytes Nitrite Labor Signs Protein Cervic Dilation Cervic Effacement Cervic Station 24 cm Type Weight in lbs Pre/Post Dialysis Refused Weight 174.469955118462 BP Diastolic BP Location Tested BP Systolic [...] Weight in lbs Pre/Post Dialysis Refused Weight 181.768202358194 BP Diastolic BP Location Tested BP Systolic [...] Weight in lbs Pre/Post Dialysis Refused Weight 187.740280421616 BP Diastolic BP Location Tested BP Systolic [...] Weight in lbs Pre/Post Dialysis Refused Weight 188.092385211377 BP Diastolic BP Location Tested BP Systolic [...] Weight in lbs Pre/Post Dialysis Refused Weight 192.388205382537 BP Diastolic BP Location Tested BP Systolic [...] Weight in lbs Pre/Post Dialysis Refused Weight 195.269799809579 BP Diastolic BP Location Tested BP Systolic [...] Weight in lbs Pre/Post Dialysis Refused Weight 197.061190494793 BP Diastolic BP Location Tested BP Systolic [...] Type Weight in lbs Pre/Post Dialysis Refused 198.480212187701 BP Diastolic BP Location Tested BP Systolic [...]
[2025-03-31 18:20] LABS: Alanine Aminotransferase 19 U/L (6-35); Albumin Level 3.9 g/dL (3.5-5.1); Alkaline Phosphatase 150 U/L (38-126); Anion Gap 10 mmol/L (4-12); Aspartate Amino Transferase 35 U/L (14-36); Bilirubin,Total 0.4 mg/dL (0.2-1.3); Blood Urea Nitrogen 11 mg/dL (7-17); Calcium 9.3 mg/dL (8.4-10.2); Carbon Dioxide 18 mmol/L (22-30); Chloride 106 mmol/L (98-107); Creatinine Urine 31.8 mg/dL; Estimated CRCL calculation 126 ml/min; Estimated Glomerular Filt Rate > 60; Glucose 79 mg/dL (65-110); Sodium 134 mmol/L (137-145); Total Protein 7.2 g/dL (6.3-8.2); Total Protein Urine Random 11 mg/dL; Ur Ttl Prot Creatinine Ratio 0.35 mg/mg (0-0.20); Uric Acid 7.9 mg/dL (2.5-7.5)
--- NOTE | 2025-03-31 19:39 | WPDOBADMIT ---
Obstetrics - Admit Note Admission Note: record reviewed. No pertinent additions to the history and/or any subsequent changes in the physical findings that are not consistent with the expected course of the were found. Additions to the history and/or subsequent changes in the physical findings follow. admit for preeclampsia plan [facility]otec
[2025-03-31 19:59] LABS: Basophils Percent Auto 0.2 % (0.2-1.2); Eosinophils Absolute Auto 0.1 K/mm3 (0-0.3); Eosinophils Percent Auto 0.4 % (0-4.4); Hematocrit 36.9 % (37.0-47.0); Hemoglobin 12.9 g/dL (12.0-15.0); Immature Granulocyte Absolute 0.11 K/mm3 (0.00-0.031); Immature Granulocyte Percent A 0.7 % (0-0.5); Lymphocytes Absolute Auto 2.59 K/mm3 (0.9-3.2); Lymphocytes Percent Auto 15.8 % (18.3-44.2); Mean Corpuscular Hemoglobin 33.3 pg (26-34); Mean Corpuscular Volume 95.3 fl (80-100); Mean Platelet Volume 10.7 fl (7.4-10.4); Monocytes Absolute Auto 0.9 K/mm3 (0.1-0.6); Monocytes Percent Auto 5.3 % (2.6-8.5); Neutrophils Absolute Auto 12.7 K/mm3 (1.3-6.7); Neutrophils Percent Auto 77.6 % (45.5-73.1); Platelet Count Result 195 k/mm3 (150-375); Red Blood Count 3.87 M/mm3 (4.2-5.4); Red Cell Distribution Width 11.9 % (11.5-14.5); White Blood Count 16.4 K/mm3 (4.5-10.0)
[2025-03-31] MEDS: fentaNYL CITRATE INJ (*CRX) 100 MCG/2 ML VIAL 50 MCG IV PUSH (20:19)
--- NOTE | 2025-03-31 20:22 | PM.OBPNLAB ---
Pain Control Date/time seen: 03/31/25 20:22 Comments: FHR category 1 contractions every 4 minutes SVE 1+/80/0 station AROM clear fluid anticipate vaginal delivery
[2025-03-31 20:37] LABS: Syphilis IgG/IgM Antibody Non-Reactive (Nonreactive)
[2025-03-31] MEDS: LACTATED RINGERS 1,000 ML 125 ML IV CONT ×2 (20:46→23:45)
[2025-03-31] MEDS: OXYTOCIN 30 UNITS/NS 500 ML 30 UNITS/500 ML BAG 6 UNITS IV CONT (20:47)
[2025-03-31 20:49] LABS: HIV 1/2 Ab P24 Ag Result Negative (Negative)
--- NOTE | 2025-03-31 22:02 | P.PNAN_ITS ---
Anes - Initial Pre Proc Eval Procedure: labor epidural Date/Time: 03/31/25 22:02 Surgeon: Francisca Longo CNM Pre Op Diagnosis: labor pain Pre Op Diagnosis: pih Patient Data Age: 25 Gender: F Height: 1.7 m Weight: 90 kg Last Vital Signs Temp 36.6 C 03/31/25 20:30 Pulse 73 03/31/25 21:46 BP 125/82 03/31/25 21:46 O2 Del Method Room Air 03/31/25 19:51 Allergies Allergy/AdvReac Type Severity Reaction Status Date / Time No Known Allergies Allergy Verified 03/19/25 15:42 Home Medications ?Medication ?Instructions ?Recorded ?Confirmed ?Type vit no.95-ferrous 1 tablet PO DAILY 03/19/25 03/19/25 History fumarate 28 mg-folic acid 800 mcg tablet () Laboratory Tests 03/31/25 03/31/25 17:12 19:43 WBC 15.7 H K/mm3 16.4 H K/mm3 (4.5-10.0) (4.5-10.0) RBC 3.83 L M/mm3 3.87 L M/mm3 (4.2-5.4) (4.2-5.4) Hgb 12.8 g/dL 12.9 g/dL (12.0-15.0) (12.0-15.0) Hct 36.5 L % 36.9 L % (37.0-47.0) (37.0-47.0) MCV 95.3 fl 95.3 fl (80-100) (80-100) MCH 33.4 pg 33.3 pg (26-34) (26-34) MCHC 35.1 g/dl 35.0 g/dl (32-36) (32-36) RDW 12.0 % 11.9 % (11.5-14.5) (11.5-14.5) Plt Count 182 k/mm3 195 k/mm3 (150-375) (150-375) MPV 11.0 H fl 10.7 H fl (7.4-10.4) (7.4-10.4) Immature Gran % (Auto) 0.7 H % 0.7 H % (0-0.5) (0-0.5) Neut % (Auto) 78.0 H % 77.6 H % (45.5-73.1) (45.5-73.1) Lymph % (Auto) 14.9 L % 15.8 L % (18.3-44.2) (18.3-44.2) [place] % (Auto) 5.8 % 5.3 % (2.6-8.5) (2.6-8.5) Eos % (Auto) 0.3 % 0.4 % (0-4.4) (0-4.4) Baso % (Auto) 0.3 % 0.2 % (0.2-1.2) (0.2-1.2) Lymph # (Auto) 2.34 K/mm3 2.59 K/mm3 (0.9-3.2) (0.9-3.2) [place] # (Auto) 0.9 H K/mm3 0.9 H K/mm3 (0.1-0.6) (0.1-0.6) Eos # (Auto) 0.1 K/mm3 0.1 K/mm3 (0-0.3) (0-0.3) Baso # (Auto) 0.0 K/mm3 0.0 K/mm3 (0.0-0.1) (0.0-0.1) Abs Immat Gran (auto) 0.11 H K/mm3 0.11 H K/mm3 (0.00-0.031) (0.00-0.031) Absolute Neuts (auto) 12.3 H K/mm3 12.7 H K/mm3 (1.3-6.7) (1.3-6.7) Absolute Nucleated RBC 0.000 K/mm3 0.000 K/mm3 (0.0-0.012) (0.0-0.012) Nucleated RBC % 0.0 % 0.0 % (0.0-0.2) (0.0-0.2) Sodium 134 L mmol/L (137-145) Potassium 4.0 mmol/L (3.4-5.0) Chloride 106 mmol/L (98-107) Carbon Dioxide 18 L mmol/L (22-30) Anion Gap 10 mmol/L (4-12) BUN 11 mg/dL (7-17) Creatinine 0.67 L mg/dL (0.7-1.0) Estim Creat Clear Calc 126 ml/min Estimated GFR > 60 (59 - ) Glucose 79 mg/dL (65-110) Uric Acid 7.9 H mg/dL (2.5-7.5) Calcium 9.3 mg/dL (8.4-10.2) Total Bilirubin 0.4 mg/dL (0.2-1.3) AST 35 U/L (14-36) ALT 19 U/L (6-35) Alkaline Phosphatase 150 H U/L (38-126) Total Protein 7.2 g/dL (6.3-8.2) Albumin 3.9 g/dL (3.5-5.1) Urine Color Yellow (Yellow) Urine Appearance Clear (Clear) Urine pH 6.5 (5.0-9.0) Ur Specific [place] 1.006 (1.001-1.035) Urine Protein Negative mg/dL (Negative) Urine Glucose (UA) Negative mg/dL (Negative) Urine Ketones Negative mg/dL (Negative) Ur Blood (Man) Negative (Negative) Urine Nitrate Negative (Negative) Urine Bilirubin Negative (Negative) Urine Urobilinogen 0.2 mg/dL (<2.0) Leukocyte Esterase Rfl 3+ H JENNIFER/UL (Negative) Urine RBC 0-2 /hpf (0-2) Urine WBC 11-20 H /hpf (0-3) Ur Squamous Epith Cells Occasional /hpf (Few) Urine Bacteria 1+ H /hpf Urine Casts 0-2 U Random Total Protein 11 mg/dL Urine Creatinine 31.8 mg/dL Protein/Creat Ratio 2 0.35 H mg/mg (0-0.20) Syphilis IgG/IgM Ab Non-reactive (Nonreactive) HIV 1&2 Ab/P24 Ag 4thGn Negative (Negative) Blood Type A Positive Antibody Screen Negative Patient hx anesthesia problems: none Family hx anesthesia problems: none Results Review: All pre-operative results and documents have been reviewed as part of the pre- operative evaluation. [facility] Family History Family History Father Hypertension Pacemaker Other Muscular dystrophy Social History Social History Smoking status: Never smoker Second hand tobacco smoke exposure: No Substance use: never Do You Feel Safe in your Home?: Yes Lack of Transportation: No Lack of Food: Never True Current Housing: I Have Housing Concerned About Future Housing: No Difficulty Paying Gas/Electric Bills: No Difficulty Paying for Meds: No Currently Unemployed: No Education: Bachelor's Degree Difficulty w/ Childcare or Family Care: No Spiritual care concerns: No Anes - Eval Final PreProcedure Day of Procedure 03/31/25 22:02 Heart: regular rate and rhythm Lungs: clear to auscultation and normal air movement Airway: Mallampati scale class 1 Neurological: alert and oriented ASA classification: II Anesthetic plan: proceed Anesthesia type and monitoring: regional epidural and standard monitoring Results Review: All pre-operative results and documents have been reviewed as part of the pre- operative evaluation. Informed Consent: The patient's anesthetic plan and its attendant risks and benefits were discussed with the patient/family/POA. Questions were solicited and answers provided to the satisfaction of the patient/family/POA.
[2025-04-01] VITALS (83 sets, daily range): BP systolic 103–148; BP diastolic 62–96; PULSE 25–121; RESP 16–18; TEMP 36.1–36.9; O2SAT 85–100
[2025-04-01] MEDS: ONDANSETRON INJ 4 MG/2 ML VIAL IV PUSH (01:58)
--- NOTE | 2025-04-01 06:07 | PM.OBPRVD ---
OB - Vaginal Delivery Note Procedure Delivery date: 04/01/25 Events: Preeclampsia w/o severe features Induction method: AROM and Per Pitocin Protocol Delivery monitor: External FHT and External Uterine Route of delivery: Episiotomy description: None Laceration Description: None Specimen: No Quantitative Blood Loss (ml): 75 Anesthesia type: Epidural Disposition: Floor Complications: No immediate complications Baby Date of : 04/01/25 Time of : 05:56 Gestational Age by Date: 38 Infant gender: Female presentation: vertex position: Left Occiput Anterior Placenta delivery description: Spontaneous Cord Vessel Description: 3 Vessels and Delayed Cord Clamping
[2025-04-01] MEDS: OXYTOCIN 30 UNITS/NS 500 ML 30 UNITS/500 ML BAG 125 UNITS IV CONT (06:30)
--- NOTE | 2025-04-01 08:30 | PC.NURSE ---
Patient transferred to post room #280 via (wheelchair). Support person present. Oriented to unit, room, information board, rooming in, admission packet and security measures. Patient verbalizes understanding.
[2025-04-01] MEDS: MULTIVIT/MIN/PREN/FOL AC/IRON TABLET 1 TAB PO (10:10)
[2025-04-01] MEDS: ACETAMINOPHEN 325 MG TABLET 650 MG PO ×3 (10:10→21:46)
[2025-04-01] MEDS: POLYSACCHARIDE IRON COMPLEX 150 MG CAPSULE PO ×2 (10:10→16:45)
[2025-04-01] MEDS: IBUPROFEN 600 MG TABLET PO ×2 (13:47→21:45)
[2025-04-01] MEDS: DOCUSATE SODIUM 100 MG CAPSULE PO (16:45)
[2025-04-02] VITALS: BP 112/71; PULSE 63; RESP 18; TEMP 36.5; O2SAT 99
[2025-04-02] MEDS: ACETAMINOPHEN 325 MG TABLET 650 MG PO ×4 (03:47→22:18)
[2025-04-02] MEDS: IBUPROFEN 600 MG TABLET PO ×4 (03:47→22:17)
[2025-04-02 04:00] VITALS: BP 118/63; PULSE 62; RESP 16; TEMP 36.5; O2SAT 99
[2025-04-02 05:59] LABS: Hematocrit 33.6 % (37.0-47.0); Hemoglobin 11.3 g/dL (12.0-15.0)
--- NOTE | 2025-04-02 07:32 | P.PNOB_ITS ---
OB - PN: Subj Subjective Date/time seen: 04/02/25 07:32 Interval history: pp day 1 doing well no complaints OB - PN: Obj Data Labs 04/02/25 03:35 03/31/25 17:12 Labs: Laboratory Results - last 24 hr 04/02/25 03:35 Hgb 11.3 L Hct 33.6 L OB - PN A/P Plan day: 1 Plan: routine care Time Spent With Patient Time: Total time spent is greater than 50% in coordination of care (as documented) at patient's floor/unit and/or counseling patient: Review of Systems 2 Review of Systems: All systems reviewed & are unremarkable except as noted in HPI and below Exam 2 Const: General: cooperative, healthy appearing and comfortable Chest: Chest palpation & inspection: normal inspection of the chest Resp: Effort & Inspection: normal respiratory effort
[2025-04-02 08:15] VITALS: BP 139/76; PULSE 62; RESP 16; TEMP 37.2; O2SAT 98
--- NOTE | 2025-04-02 10:45 | PC.NURSE ---
Introductions were made, then consulted with patient to assess needs related to . Discussed with mother her plans to feed her and the experience so far. She has a Mom Cozy breast pump that LC set up with her yesterday. She does not desire to put baby to breast and only wants to pump when it feels right for her. She is bottle feeding with [employer] and needs assistance to get baby to take an adequate volume. Resources provided for inpatient and outpatient services with the feeding sheet, mom/baby guide and name written on the communication board. Mother voiced understanding of information and will call if there is a request for assistance. Reported to the Primary RN.?
[2025-04-02 12:19] VITALS: BP 122/74; PULSE 78; RESP 16; TEMP 36.8; O2SAT 96
--- NOTE | 2025-04-02 14:23 | WPDANLDPN2 ---
Anes-Prog Note L&D Date/Time: 04/02/25 14:23 Comfortable throughout: labor and delivery Neuraxial method: epidural Epidural/Spinal procedure site: clean & non-tender Neuro status: Neuro function grossly intact. Cardiovascular status: normal Respiratory status: normal Airway patency: baseline Mental status: baseline Post-Op hydration status: normal Vital Signs: Last Vital Signs Temp 36.8 C 04/02/25 12:19 Pulse 78 04/02/25 12:19 Resp 16 04/02/25 12:19 BP 122/74 04/02/25 12:19 Pulse Ox 96 04/02/25 12:19 O2 Del Method Room Air 04/02/25 08:40 Pain score (VAS): 1 I/O: Intake & Output 04/01/25 04/02/25 04/02/25 23:59 07:59 15:59 Intake Total 240 Balance 240 Post-procedural complaints: none Patient feedback: Patient satisfied with anesthetic care.
[2025-04-02 16:20] VITALS: BP 145/85; PULSE 62; RESP 16; O2SAT 100
--- NOTE | 2025-04-02 16:23 | PC.NURSE ---
Pt is complaining of irritation and pressure on both sides under her breasts. There is no irritation or rash that I can see. the area is not tender to touch. Pt states it is worse when she is wearing a bra. Blood pressure is slightly elevated from past blood pressures. Flo Longo CNM, notified, and orders received
[2025-04-02 16:44] LABS: Hematocrit 35.3 % (37.0-47.0); Hemoglobin 11.9 g/dL (12.0-15.0); Mean Corpuscular HGB Conc 33.7 g/dl (32-36); Mean Corpuscular Volume 97.8 fl (80-100); Mean Platelet Volume 10.4 fl (7.4-10.4); Platelet Count Result 156 k/mm3 (150-375); Red Blood Count 3.61 M/mm3 (4.2-5.4); Red Cell Distribution Width 12.4 % (11.5-14.5); White Blood Count 13.1 K/mm3 (4.5-10.0)
[2025-04-02 17:02] LABS: Alanine Aminotransferase 19 U/L (6-35); Albumin Level 3.4 g/dL (3.5-5.1); Alkaline Phosphatase 113 U/L (38-126); Anion Gap 7 mmol/L (4-12); Aspartate Amino Transferase 47 U/L (14-36); Bilirubin,Total 0.2 mg/dL (0.2-1.3); Blood Urea Nitrogen 12 mg/dL (7-17); Calcium 8.9 mg/dL (8.4-10.2); Carbon Dioxide 23 mmol/L (22-30); Chloride 106 mmol/L (98-107); Estimated CRCL calculation 100 ml/min; Estimated Glomerular Filt Rate > 60; Glucose 77 mg/dL (65-110); Sodium 136 mmol/L (137-145); Total Protein 6.6 g/dL (6.3-8.2)
--- NOTE | 2025-04-02 17:07 | PC.NURSE ---
Flo Longo notified of lab results, orders received to repeat labs in the am.
[2025-04-02 20:48] VITALS: BP 140/91; PULSE 83; RESP 16; TEMP 36.2; O2SAT 99
[2025-04-03 00:10] VITALS: BP 122/74; PULSE 59; RESP 16; TEMP 36.2; O2SAT 99
[2025-04-03] MEDS: IBUPROFEN 600 MG TABLET PO ×2 (04:07→17:00)
[2025-04-03] MEDS: ACETAMINOPHEN 325 MG TABLET 650 MG PO ×2 (04:07→17:00)
[2025-04-03 04:09] VITALS: BP 134/81; PULSE 59; RESP 16; TEMP 36.6; O2SAT 98
[2025-04-03 05:44] LABS: Hematocrit 34.1 % (37.0-47.0); Hemoglobin 11.5 g/dL (12.0-15.0); Mean Corpuscular HGB Conc 33.7 g/dl (32-36); Mean Corpuscular Volume 97.7 fl (80-100); Mean Platelet Volume 10.7 fl (7.4-10.4); Platelet Count Result 145 k/mm3 (150-375); Red Blood Count 3.49 M/mm3 (4.2-5.4); Red Cell Distribution Width 12.4 % (11.5-14.5); White Blood Count 11.7 K/mm3 (4.5-10.0)
[2025-04-03 06:07] LABS: Alanine Aminotransferase 21 U/L (6-35); Albumin Level 3.2 g/dL (3.5-5.1); Alkaline Phosphatase 107 U/L (38-126); Anion Gap 7 mmol/L (4-12); Aspartate Amino Transferase 43 U/L (14-36); Bilirubin,Total 0.2 mg/dL (0.2-1.3); Blood Urea Nitrogen 11 mg/dL (7-17); Calcium 8.5 mg/dL (8.4-10.2); Carbon Dioxide 21 mmol/L (22-30); Chloride 107 mmol/L (98-107); Estimated CRCL calculation 119 ml/min; Estimated Glomerular Filt Rate > 60; Glucose 84 mg/dL (65-110); Potassium 3.7 mmol/L (3.4-5.0); Sodium 135 mmol/L (137-145); Total Protein 6.2 g/dL (6.3-8.2)
[2025-04-03 06:55] VITALS: BP 139/88; PULSE 59; RESP 16; TEMP 36.6; O2SAT 99
--- NOTE | 2025-04-03 08:30 | PC.NURSE ---
Introductions were made, then consulted with patient to assess needs related to . Discussed with mother any questions or concerns she has regarding pumping. She pumped 3 ml last night and fed that to baby with the bottle. She does not have any other concerns. Resources provided for inpatient and outpatient services with the feeding sheet, mom/baby guide and name written on the communication board. Mother voiced understanding of information and will call if there is a request for assistance. Reported to the Primary RN.?
--- NOTE | 2025-04-03 08:34 | P.PNOB_ITS ---
OB - PN: Subj Subjective Date/time seen: 04/03/25 08:34 Interval history: pp day 2 doing well mild epigastric pain, present for 3-4 weeks no improvement with tylenol or ibuprofen denies chest pain, headaches, vision changes, or RUQ pain baby under bili lights OB - PN: Obj Data Labs 04/03/25 05:37 04/03/25 05:37 Labs: Laboratory Results - last 24 hr 04/02/25 04/03/25 16:32 05:37 WBC 13.1 H 11.7 H RBC 3.61 L 3.49 L Hgb 11.9 L 11.5 L Hct 35.3 L 34.1 L MCV 97.8 97.7 MCH 33.0 33.0 MCHC 33.7 33.7 RDW 12.4 12.4 Plt Count 156 145 L MPV 10.4 10.7 H Sodium 136 L 135 L Potassium 4.0 3.7 Chloride 106 107 Carbon Dioxide 23 21 L Anion Gap 7 7 BUN 12 11 Creatinine 0.86 0.71 Estim Creat Clear Calc 100 119 Estimated GFR > 60 > 60 Glucose 77 84 Calcium 8.9 8.5 Total Bilirubin 0.2 0.2 AST 47 H 43 H ALT 19 21 Alkaline Phosphatase 113 107 Total Protein 6.6 6.2 L Albumin 3.4 L 3.2 L OB - PN A/P Assessment and Plan (1) Epigastric pain: Code(s): R10.13 - Epigastric pain Status: Acute Assessment and Plan: - present x3-4 weeks - no other symptoms - not improved with tylenol/ibuprofen - ddx: gas pain vs acid reflux - will try simethicone and pepcid - labs overall wnl, AST slightly elevated - low suspicion for preeclampsia - ok for discharge if pain improving (2) (spontaneous vaginal delivery): Code(s): O80 - Encounter for full-term uncomplicated delivery Status: Acute Plan day: 2 Plan: routine care and discharge home Time Spent With Patient Time: Total time spent is greater than 50% in coordination of care (as documented) at patient's floor/unit and/or counseling patient: Review of Systems 2 Review of Systems: All systems reviewed & are unremarkable except as noted in HPI and below Exam 2 Const: General: comfortable and no acute distress O rientation/consciousness: patient oriented x3 Resp: Effort & Inspection: normal respiratory effort
--- NOTE | 2025-04-03 08:40 | P.DS_ITS ---
DS: Admitting Diagnosis Discharge Date 03/31/25 Admitting Diagnosis preeclampsia without severe features, MIL DS: Discharge Diagnosis Discharge Diagnosis (1) (spontaneous vaginal delivery): Code(s): O80 - Encounter for full-term uncomplicated delivery Status: Acute (2) Pre-eclampsia, mild, delivered: Code(s): O14.04 - Mild to moderate pre-eclampsia, complicating childbirth Status: Acute OB - DS: Summary OB Procedures : None OB Procedures Intrapartum: Spontaneous Vag Delivery OB Procedures: : None Peripartum Data Laceration Description: None Episiotomy description: None Time Spent with Patient Time attestation: Total time spent providing and/or coordinating discharge services: DS: Data Data Completed and Pending Labs on day of discharge: Labs from last 24 hours 04/03/25 04/02/25 05:37 16:32 WBC 11.7 H 13.1 H RBC 3.49 L 3.61 L Hgb 11.5 L 11.9 L Hct 34.1 L 35.3 L MCV 97.7 97.8 MCH 33.0 33.0 MCHC 33.7 33.7 RDW 12.4 12.4 Plt Count 145 L 156 MPV 10.7 H 10.4 Sodium 135 L 136 L Potassium 3.7 4.0 Chloride 107 106 Carbon Dioxide 21 L 23 Anion Gap 7 7 BUN 11 12 Creatinine 0.71 0.86 Estim Creat Clear Calc 119 100 Estimated GFR > 60 > 60 Glucose 84 77 Calcium 8.5 8.9 Total Bilirubin 0.2 0.2 AST 43 H 47 H ALT 21 19 Alkaline Phosphatase 107 113 Total Protein 6.2 L 6.6 Albumin 3.2 L 3.4 L Discharge Plan Discharge Attending physician on discharge: Kirt Song Discharging Clinician: Kirt Song Patient Disposition: Home Activity: may shower, as tolerated and pelvic rest Diet: as tolerated Patient Instructions: Antibiotic Form Patient Language: [place] Stand Alone Forms: General Discharge Information Follow-up/Referrals: Francisca Longo CNM [Certified Nurse Parole Supervisor] - 1 Week Discharge Medications: New docusate sodium 100 mg Capsule 100 mg PO BID PRN (Reason: Constipation) Qty: 60 0RF ibuprofen 600 mg Tablet 600 mg PO Q6H PRN (Reason: Cramping) Qty: 30 0RF Continued PNV cmb#95-ferrous fumarate-FA [] 28 mg iron- 800 mcg tablet 1 tablet PO DAILY Date of admission: 03/31/25 18:40 Primary Care Provider: PHYSICIAN,ANTISQUEAK APPLIER Admitting Provider: Bernardo Cloon Attending physician on admission: Francisca Longo Condition: Stable
[2025-04-03] MEDS: DOCUSATE SODIUM 100 MG CAPSULE PO ×2 (09:03→16:59)
[2025-04-03] MEDS: MULTIVIT/MIN/PREN/FOL AC/IRON TABLET 1 TAB PO (09:03)
[2025-04-03] MEDS: SIMETHICONE 80 MG TAB.CHEW PO ×2 (09:04→17:00)
[2025-04-03] MEDS: FAMOTIDINE 20 MG TABLET PO ×2 (09:04→17:00)
[2025-04-03 12:14] VITALS: BP 142/83; PULSE 78; RESP 18; TEMP 36.8; O2SAT 99
[2025-04-03 17:00] VITALS: BP 136/86; PULSE 88
--- NOTE | 2025-04-03 18:00 | PC.NURSE ---
Patient discharged and is now in a No Care Bed, her is currently under phototherapy.
--- NOTE | 2025-04-03 18:37 | PC.NURSE ---
Patient viewed the discharge video Mother & Baby Care, The First Two Weeks. Patient was given the opportunity and encouraged to ask questions. Patient verbalized understanding of information shared and has been given the mother/baby guide for home reference.
[2025-04-06 08:38] VITALS: BP 130/92; PULSE 86; RESP 18; TEMP 36.8; O2SAT 99
== END 2025-04-03 18:00 | disposition home or self-care (01) | DRG 807 ==
LOC: ANHOBOP 18:42 → ANHOB2 04-03 08:38 → ANHLDR 04-06 07:56
PROVIDERS: Advanced Practice Midwife; Admitting Provider Obstetrics & Gynecology; Visit Provider Obstetrics & Gynecology
DX: O14.04 Mild to moderate pre-eclampsia, complicating childbirth (principal); Z37.0 Single live birth; O69.81X0 Labor and delivery complicated by cord around neck, without compression, not applicable or unspecified; Z3A.38 38 weeks gestation of pregnancy
CPT/HCPCS: 36415; 59025; 80053; 81001; 82570; 84156; 84550; 85014; 85018; 85025; 85027; 86593; 86703; 86850; 86900; 86901; 87086; A9270; G0432; J2405; J2590; J2795; J3010; J7120